=== PATIENT | male | born 1985 | race Caucasian/White ===

== ENCOUNTER 2019-07-16 22:48 | Emergency (ER) | payer BC ==
--- NOTE | 2019-07-16 23:24 | EDM.PDOC ---
ED HPI GENERAL MEDICAL PROBLEM - General Chief Complaint: General Stated Complaint: Diarrhea and Fever Time Seen by Provider: 07/16/19 23:14 Source of Information: Reports: Patient History Limitations: Reports: No Limitations - History of Present Illness INITIAL COMMENTS - FREE TEXT/NARRATIVE: This is a 34yo M here for fever, chills and profuse diarrhea. He has body aches and malaise. He states his last episode was a year ago when he was diagnosed with the flu. He has a decreased appetite. He denies any family or personal history of IBD. He denies any other health concerns. Onset: Sudden Duration: Day(s): Location: Reports: Abdomen Severity: Moderate Improves with: Reports: None Worsens with: Reports: None Associated Symptoms: Reports: Headaches, Nausea/Vomiting Headache Pain Score (Numeric/FACES): 5 - Related Data Allergies Allergy/AdvReac Type Severity Reaction Status Date / Time No Known Allergies Allergy Verified 07/16/19 23:04 Home Meds: Home Meds NK [No Known Home Meds] 07/16/19 [History] Past Medical History HEENT History: Reports: None Cardiovascular History: Reports: None Other Cardiovascular History: Was recommended by Rebecca to have a stress test done but pt hasn't gotten to it yet Respiratory History: Reports: None Gastrointestinal History: Reports: None Musculoskeletal History: Reports: None Psychiatric History: Reports: Depression Hematologic History: Reports: None - Infectious Disease History Infectious Disease History: Reports: Chicken Pox - Past Surgical History GI Surgical History: Reports: None Social & Family History - Tobacco Use Smoking Status *Q: Current Every Day Smoker Years of Tobacco use: 15 Packs/Tins Daily: 1 Used Tobacco, but Quit: No Second Hand Smoke Exposure: No - Caffeine Use Caffeine Use: Reports: Coffee, Soda - Recreational Drug Use Recreational Drug Use: Yes Recreational Drug Type: Reports: Marijuana/Hashish ED ROS GENERAL - Review of Systems Review Of Systems: Comprehensive ROS is negative, except as noted in HPI. ED EXAM, GENERAL - Physical Exam Exam: See Below Exam Limited By: No Limitations General Appearance: Alert, WD/WN, Mild Distress Eye Exam: Bilateral Eye: EOMI, PERRL Ears: Normal External Exam Nose: Normal Inspection Throat/Mouth: Normal Inspection Head: Atraumatic, Normocephalic Neck: Normal Inspection Respiratory/Chest: No Respiratory Distress, Lungs Clear, Normal Breath Sounds Cardiovascular: Normal Peripheral Pulses, Regular Rate, Rhythm Peripheral Pulses: 2+: Dorsalis Pedis (L), Dorsalis Pedis (R) GI/Abdominal: Tender (mild generalized tenderness), Abnormal Bowel Sounds ( hyperactive in all quadrants) Back Exam: Normal Inspection Extremities: Normal Inspection, Normal Range of Motion, Non-Tender Neurological: Alert, Oriented, CN II-XII Intact Psychiatric: Normal Affect, Normal Mood Skin Exam: Warm, Dry, Intact Course - Vital Signs Last Recorded V/S: Last Vital Signs Temp 37.7 C 07/16/19 22:56 Pulse 104 H 07/16/19 22:56 Resp 20 07/16/19 22:56 BP 125/76 07/16/19 22:56 Pulse Ox 97 07/16/19 22:56 - Orders/Labs/Meds Orders: Active Orders 24 hr Category Date Time Status Peripheral IV Insertion Adult [OM.PC] Routine Oth 07/16/19 23:26 Ordered Labs: Laboratory Tests 07/16/19 07/16/19 Range/Units 23:35 23:35 WBC 9.7 (4.0-11.0) K/uL RBC 5.29 (4.50-6.50) M/uL Hgb 15.7 (13.0-18.0) g/dL Hct 45.1 (40.0-54.0) % MCV 85 (76-96) fL MCH 29.7 (27.0-32.0) pg MCHC 34.8 (31.0-35.0) g/dL RDW 13.2 (11.0-16.0) % Plt Count 193 (150-400) K/uL MPV 9.9 (6.0-10.0) fL Neut % (Auto) 72.7 H (45.0-70.0) % Lymph % (Auto) 9.8 L (20.0-40.0) % Ballard % (Auto) 17.3 H (3.0-10.0) % Eos % (Auto) 0.0 L (1.0-5.0) % Baso % (Auto) 0.2 (0.0-0.5) % Neut # (Auto) 7.01 (2.00-7.50) K/uL Lymph # (Auto) 0.95 L (1.50-4.00) K/uL Ballard # (Auto) 1.67 H (0.20-0.80) K/uL Eos # (Auto) 0.00 L (0.04-0.40) K/uL Baso # (Auto) 0.02 (0.02-0.10) K/uL Sodium 137 (136-145) mmol/L Potassium 4.0 (3.5-5.1) mmol/L Chloride 102 (98-107) mmol/L Carbon Dioxide 26.4 (21.0-32.0) mmol/L Anion Gap 12.6 (5.0-15.0) mmol/L BUN 12 (8-26) mg/dL Creatinine 1.16 (0.70-1.30) mg/dL Est Cr Clr Drug Dosing 108.26 mL/min Estimated GFR (MDRD) > 60 (>60) MLS/MIN BUN/Creatinine Ratio 10.3 (6-25) Glucose 110 H (74-100) mg/dL Calcium 8.5 (8.5-10.1) mg/dL Total Bilirubin 0.4 (0.0-1.0) mg/dL AST 32 (15-37) U/L ALT 43 (12-78) U/L Alkaline Phosphatase 73 (46-116) U/L Total Protein 7.1 (6.4-8.2) g/dL Albumin 3.7 (3.4-5.0) g/dL Globulin 3.4 (2.2-4.2) g/dL Albumin/Globulin Ratio 1.1 (0.8-2.0) Meds: Medications Discontinued Medications Generic Name Dose Route Start Last Admin Trade Name Freq PRN Reason Stop Dose Admin Sodium Chloride 1,000 mls @ 999 mls/hr 07/16/19 23:30 07/16/19 23:40 Normal Saline IV 999 mls/hr ASDIRECTED RAYMOND Administration Sodium Chloride 10 ml 07/16/19 23:26 07/16/19 23:35 Saline Flush FLUSH 10 ml ASDIRECTED PRN Administration Keep Vein Open Departure - Departure Time of Disposition: 01:30 Disposition: Home, Self-Care 01 Condition: Good Clinical Impression: Viral gastroenteritis - Discharge Information Instructions: Loperamide tablets or capsules, Viral Gastroenteritis, Adult, [id number], Food Choices to Help Relieve Diarrhea, Adult Referrals: PCP,None [Primary Care Provider] - Forms: ED Department Discharge Additional Instructions: - If diarrhea continues, take Loperamide 2 mg, 2 capsules and another 2 capsules in the morning and after every 2-3 bouts of diarrhea. Do not take this medicine for more than 2 days. If diarrhea still continues, seek medical attention. - Continue taking oral fluids or oral solution for hydration support, if not vomiting.- May rest from work on 07/17/19. Sepsis Event Note - Focused Exam Vital Signs: Vital Signs Temp Pulse Resp BP Pulse Ox 07/16/19 22:56 37.7 C 104 H 20 125/76 97 Date Exam was Performed: 07/17/19 Time Exam was Performed: 07:12 - Problem List & Annotations (1) Viral gastroenteritis SNOMED Code(s): 987046799 Code(s): A08.4 - VIRAL INTESTINAL INFECTION, UNSPECIFIED Status: Acute - Problem List Review Problem List Initiated/Reviewed/Updated: Yes - My Orders Last 24 Hours: My Active Orders 07/16/19 23:26 Peripheral IV Insertion Adult [OM.PC] Routine - Assessment/Plan Last 24 Hours: My Active Orders 07/16/19 23:26 Peripheral IV Insertion Adult [OM.PC] Routine Plan: Counseled on supportive and conservative management. Discussed use of loperamide as needed, diet adjustment, and continued f/u in ER or clinic if symptoms persist or worsen.
[2019-07-16] MEDS ORDERED: Sodium Chloride 0.9% 10 ML Syringe FLUSH PRN (23:26)
[2019-07-16] MEDS ORDERED: Sodium Chloride 0.9% 1,000 ML IV SCH (23:30)
== END 2019-07-17 00:47 | disposition home or self-care (01) ==
LOC: LB.ED 22:48
DX: A08.4 Viral intestinal infection, unspecified (principal); F17.210 Nicotine dependence, cigarettes, uncomplicated
CPT/HCPCS: 36415; 80053; 85025; 87804; 87804-59; 96360; 99284-25; J7030